=== PATIENT | female | born 2005 | race Caucasian/White ===

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

== ENCOUNTER 2023-08-20 17:48 | Emergency (ER) | payer OTHER, SELFPAY ==
[2023-08-20 17:57] VITALS: BP 145/89; PULSE 75; RESP 16; TEMP 37; O2SAT 100
[2023-08-20 18:01] VITALS: BP 145/89; PULSE 75; RESP 16; TEMP 37; O2SAT 100
--- NOTE | 2023-08-20 18:41 | ED.FEMALEGU ---
HPI - Female Genitourinary General Chief complaint: Urogenital-Female Stated complaint: Red bumps near cervix Time Seen by Provider: 08/20/23 18:25 Source: patient and RN notes reviewed Mode of arrival: ambulatory Limitations: no limitations History of Present Illness HPI Narrative: 18 y/o female presented for c/o painful red bumps to vaginal area for about one week. States the skin zimmer with urination. Denies change in vaginal discharge, itching, abdominal pain, n/v/d/f/c, denies urinary frequency, urgency or hematuria. Not taking anything for symptoms. Denies history of similar symptoms. Related Data Home Medications Medication Instructions Recorded Confirmed fluoxetine 20 mg capsule 20 mg PO DAILY 08/20/23 08/20/23 norethindrone 1 mg-ethinyl 1 tablet PO DAILY 08/20/23 08/20/23 estradiol 20 mcg (21)-iron 75 mg (7) tablet (09/19 (28)) trazodone 50 mg tablet 50 mg PO HS 08/20/23 08/20/23 Allergies Allergy/AdvReac Type Severity Reaction Status Date / Time No Known Allergies Allergy Verified 08/20/23 17:58 Review of Systems Review of Systems: CONSTITUTIONAL: Denies body aches, fever, chills, or sweats. CARDIOVASCULAR: Denies chest pain, palpitations, or edema. RESPIRATORY: Denies cough or dyspnea. GASTROINTESTINAL: Denies abdominal pain, nausea, vomiting, or diarrhea. GENITOURINARY: Reports vaginal bumps denies dysuria, frequency, urgency, hematuria, flank pain SKIN: Denies rash, itching, or wounds. MUSCULOSKELETAL: Denies back pain or myalgia. [facility] Past Medical History Medical History (Updated 08/20/23 @ 19:26 by Jory Arellano APRN) Dysmenorrhea Irregular menses Family History Family History Grandparent Diabetes mellitus Family history of malignant neoplasm of cervix Social History Social History Smoking status: Never smoker Second hand tobacco smoke exposure: No Alcohol intake: never Comments At time of signature, I have reviewed and agree with nursing past medical, surgical, social and family history unless otherwise noted. Please see nursing chart for further information. There is no relevant family history pertinent to the presenting complaint Exam Narrative: GENERAL: Well-appearing ENT: Mucous membranes pink and moist. NECK: Normal AROM. Supple. CHEST: No respiratory distress. Clear to auscultation. HEART: Regular rate and rhythm. ABDOMEN: Soft, nontender, nondistended, normal active bowel sounds. No CVA tenderness : Vagina: Scattered painful/tender erythematous ulcerated vesicles to labia minora and vaginal introitus, pink with white discharge, no bleeding. No swelling. Cervix: normal appearance of the cervix, closed Chaperoned by Joanna HARVEY SKIN: Warm, dry NEURO: No focal deficits. Alert and oriented x3. PSYCH: Normal affect. Course Course Emergency Course: Patient is aware of diagnosis, understands and agrees to treatment plan. Anticipatory guidance given. Patient agrees to follow-up as directed and is aware of reasons to seek care at the emergency department. Portions of this record may have been created with voice recognition software Level of Care: Express Care Visit Vital Signs Vital signs: Vital Signs Temperature 98.6 F 08/20/23 17:57 Pulse Rate 75 08/20/23 17:57 Respiratory Rate 16 08/20/23 17:57 Blood Pressure 145/89 H 08/20/23 17:57 Pulse Oximetry 100 08/20/23 17:57 Oxygen Delivery Room Air 08/20/23 17:57 Temperature 98.6 F 08/20/23 18:01 Pulse Rate 75 08/20/23 18:01 Respiratory Rate 16 08/20/23 18:01 Blood Pressure 145/89 H 08/20/23 18:01 Pulse Oximetry 100 08/20/23 18:01 Oxygen Delivery Room Air 08/20/23 18:01 Reviewed MDM - Female Genitourinary MDM Narrative Medical decision making narrative: Patient presenting with concern for STD. Urine specimen omkar
[2023-08-20 21:02] LABS: Trichomonas Vag PCR NOT DETECTED (NOT DETECTE)
[2023-08-20 21:25] LABS: Chlamydia trachomatis NOT DETECTED (NOT DETECTE); Neisseria gonorrhoeae PCR NOT DETECTED (NOT DETECTE)
--- NOTE | 2023-08-28 15:14 | PC.NURSE ---
Lab positive for herpes simplex. Provider that treated patient requested results and states she will call the patient. Provider notified of results.
== END 2023-08-20 18:53 | disposition home or self-care (01) ==
PROVIDERS: Emergency Provider Nurse Practitioner Family; PCP Obstetrics & Gynecology
DX: N76.0 Acute vaginitis (principal); Z79.899 Other long term (current) drug therapy
CPT/HCPCS: 81003; 81025; 87086; 87255; 87491; 87591; 87661; 99214; G0463

== ENCOUNTER 2024-06-01 18:11 | Emergency (ER) | payer OTHER, SELFPAY ==
[2024-06-01 18:16] VITALS: BP 115/64; PULSE 73; RESP 16; TEMP 36.6; O2SAT 100
[2024-06-01 18:37] LABS: EDSTREPNEGPOS1 Negative (Negative)
--- NOTE | 2024-06-01 18:43 | ED.URI ---
HPI - URI/Sore Throat General Chief Complaint: Upper Respiratory Infection Stated Complaint: throat Time Seen by Provider: 06/01/24 18:25 Source: patient Mode of arrival: ambulatory Limitations: no limitations History of Present Illness HPI Narrative: 18-year-old female presents with complaint of sore throat, fatigue, fever, headache for 2 Days. Denies Nausea and vomiting. All systems reviewed and negative except as noted above. Related Data Home Medications Medication Instructions Recorded Confirmed trazodone 50 mg tablet 50 mg PO HS 08/20/23 06/01/24 escitalopram oxalate 20 mg tablet 20 mg PO DAILY 06/01/24 06/01/24 norethindrone 1 mg-ethinyl 1 tablet PO DAILY 06/01/24 06/01/24 estradiol 20 mcg (21)-iron 75 mg (7) tablet (Aurovela Fe 1-20 (28)) Allergies Allergy/AdvReac Type Severity Reaction Status Date / Time No Known Allergies Allergy Verified 06/01/24 18:36 Review of Systems Review of Systems: CONSTITUTIONAL: Denies fever, chills, or sweats. reports fatigue. EYES: Denies visual changes, redness, or discharge. ENT: Denies rhinorrhea, congestion . Reports sore throat. Denies otalgia. CARDIOVASCULAR: Denies chest pain, palpitations, or edema. RESPIRATORY: Denies cough or dyspnea. GASTROINTESTINAL: Denies abdominal pain, nausea, vomiting, or diarrhea. GENITOURINARY: Denies dysuria or hematuria. SKIN: Denies rash or itching. MUSCULOSKELETAL: Denies back pain, joint pain, or myalgia. NEUROLOGIC: Denies headache, numbness, or weakness. PSYCHIATRIC: Denies anxiety or depression. All other systems reviewed are negative, except as documented in HPI. [facility] Past Medical History Medical History (Updated 06/01/24 @ 18:42 by Kylah Bhagat NP) Dysmenorrhea Irregular menses Family History Family History Grandparent Diabetes mellitus Family history of malignant neoplasm of cervix Social History Social History Smoking status: Never smoker Second hand tobacco smoke exposure: No Alcohol intake: never Comments At time of signature, agree with nursing past medical, surgical, social and family history. There is no relevant family history pertinent to the presenting complaint. Exam Narrative: GENERAL: This is a well-nourished, well-developed patient, in no apparent distress. HEAD: normocephalic, atraumatic. EYES: PERRL. Sclera clear/white. Vision is grossly intact. EARS: External ears normal, auditory canals clear and without drainage, TMs normal without perforation. Hearing grossly intact. NOSE: External nose normal with no obvious nasal discharge, nares without redness, no rhinorrhea. THROAT: Mucous membranes moist, Posterior pharynx erythematous, tonsils 1+ bilaterally with exudates NECK: Neck supple,tender bilateral cervical lymphadenopathy. masses or thyromegaly. CARDIOVASCULAR: Regular rate and rhythm without murmurs, gallops, or rubs. RESPIRATORY: Clear to auscultation. Breath sounds equal bilaterally. No wheezes, rales, or rhonchi. SKIN: warm, Dry, intact with no suspicious lesions or rash, good texture and turgor. NEURO: awake, alert, and oriented to person, place and time. There were no obvious focal neurologic abnormalities. EXTREMITIES: No joint tenderness, effusion, or edema noted. Course Course Level of Care: Express Care Visit Vital Signs Vital signs: Vital Signs Temperature 36.6 C 06/01/24 18:16 Pulse Rate 73 06/01/24 18:16 Respiratory Rate 16 06/01/24 18:16 Blood Pressure 115/64 06/01/24 18:16 Pulse Oximetry 100 06/01/24 18:16 Oxygen Delivery Room Air 06/01/24 18:16 Temperature 36.6 C 06/01/24 18:16 Pulse Rate 73 06/01/24 18:16 Respiratory Rate 16 06/01/24 18:16 Blood Pressure 115/64 06/01/24 18:16 Pulse Oximetry 100 06/01/24 18:16 Oxygen Delivery Room Air 06/01/24 18:16 Reviewed [facility] -
== END 2024-06-01 18:43 | disposition home or self-care (01) ==
PROVIDERS: Emergency Provider Nurse Practitioner Family
DX: J02.0 Streptococcal pharyngitis (principal)
CPT/HCPCS: 87081; 87880; 99213; G0463